=== PATIENT | female | born 1950 | race Caucasian/White ===

== ENCOUNTER → 2021-02-28 | Outpatient (CLI) | payer MEDICARE, OTHER ==
[~2021-02-28] MED LIST: MOTRIN200 MG PO; NORVASC5 MG PO; PROMETHAZINE HC25 M1 PO; TRAMADOL HCL50 MG PO; Z.0.MOBIC15 MG PO; Z.0.PHENERGAN25 M1 PO
== END ==
LOC: US 14:21
PROVIDERS: ATTEND Family Medicine
DX: N20.0 Calculus of kidney (principal)
CPT/HCPCS: 76770

== ENCOUNTER 2021-03-01 12:27 | Emergency (ER) | payer MEDICARE, OTHER ==
[~2021-03-01] VITALS: Ht 157.5 cm; Wt 77.1 kg
[~2021-03-01 12:27] MED LIST changes: -MOTRIN200 MG PO; -PROMETHAZINE HC25 M1 PO
[2021-03-01] MEDS ORDERED: KETOROLAC TROMETHAMINE 60 MG/2 ML VIAL IM ONE (13:00)
[2021-03-01] MEDS ORDERED: ONDANSETRON HCL 4 MG ORAL DISINTEGRATING TAB PO ONE (13:00)
[2021-03-01] MEDS ORDERED: PROMETHAZINE HCL (IM) 25 MG/ML VIAL IM ONE (13:30)
[2021-03-01 14:00] LABS: CLARITY,URINE CLEAR (CLEAR); COLOR,URINE YELLOW (YELLOW); KETONES,URINE NEGATIVE (NEGATIVE); LEUKOCYTE ESTERASE ,URINE NEGATIVE (NEGATIVE); NITRITE,URINE NEGATIVE (NEGATIVE); PROTEIN,URINE DIPSTICK NEGATIVE (NEGATIVE); URINE UROBILINOGEN 0.2 mg/dL (0.2 - 1)
[2021-03-01 14:11] LABS: EPITHELIAL CELLS,URINE FEW /LPF; RBC,URINE 0-5 /HPF (0-5); WBC,URINE (MAN) 0-5 /HPF (0-5)
[2021-03-01] MEDS ORDERED: MOTRIN200 MG PO (14:25)
[2021-03-01] MEDS ORDERED: PROMETHAZINE HC25 M1 PO (14:25)
[2021-03-01 14:30] VITALS: BP 124/55
== END 2021-03-01 14:36 | disposition home or self-care (01) ==
LOC: ER 12:43
DX: R10.30 Lower abdominal pain, unspecified (principal); R11.2 Nausea with vomiting, unspecified
CPT/HCPCS: 74176; 81001; 99284; J1885; J2550; Q0162

== ENCOUNTER 2022-06-22 03:52 | Inpatient (IN) | payer MEDICARE, OTHER ==
[~2022-06-22] VITALS: Ht 157.5 cm; Wt 81.6 kg
[2022-06-22] VITALS (7 sets, daily range): BP systolic 103–124; BP diastolic 63–77
[~2022-06-22 03:52] MED LIST changes: +MOTRIN200 MG PO; +PROMETHAZINE HC25 M1 PO
[2022-06-22 04:22] LABS: BASOPHILS # (AUTO) 0.1 (0.0-0.1); BASOPHILS % 0.7 % (0.0-1.0); EOSINOPHILS # (AUTO) 0.7 (0.0-0.4); EOSINOPHILS % 7.3 % (0.0-6.0); HEMATOCRIT 38.7 % (34.2-44.1); HEMOGLOBIN 13.2 g/dL (12.0-16.0); LYMPHOCYTES # (AUTO) 3.7 (1.0-3.2); LYMPHOCYTES % 41.7 % (18.0-39.1); MEAN CORPUSCULAR HEMOGLOBIN 32.7 pg (28-32); MEAN CORPUSCULAR HGB CONC 34.1 g/dL (31-35); MEAN CORPUSCULAR VOLUME 95.8 fL (81-99); MONOCYTES # (AUTO) 0.7 (0.2-0.8); MONOCYTES % 8.2 % (4.4-11.3); NEUTROPHILS # (AUTO) 3.7 (2.1-6.9); NEUTROPHILS % 41.8 % (38.7-80.0); PLATELET COUNT 349 x10e3/uL (140-360); RED BLOOD COUNT 4.04 x10e6/uL (3.6-5.1); RED CELL DISTRIBUTION WIDTH 12.5 % (11.7-14.4)
[2022-06-22 04:42] LABS: ANION GAP 15.6 mmol/L (8-16); CALCIUM 9.5 mg/dL (8.4-10.2); CREATININE, SERUM 0.83 mg/dL (0.57-1.11); POTASSIUM 3.6 mmol/L (3.5-5.1)
[2022-06-22] MEDS ORDERED: NITROSTAT0.4 MG SL (04:58)
[2022-06-22] MEDS ORDERED: ASPIRIN 81 MG CHEW TAB PO ONE ×2 (05:00→05:45)
[2022-06-22] MEDS ORDERED: LACTATED RINGER'S 1,000 ML INJ ONE (05:00)
[2022-06-22] MEDS ORDERED: ASPIRIN 325 MG TAB ONE (05:13)
[2022-06-22] MEDS ORDERED: ONDANSETRON HCL INJ 2MG/ML 2ML 2 MG/ML VIAL IV PRN (05:45)
[2022-06-22] MEDS ORDERED: ACETAMINOPHEN 1000 MG/100 ML IV PRN (06:00)
[2022-06-22 06:38] LABS: CREATINE KINASE MB 1.4 ng/mL (0-5.0)
[2022-06-22] MEDS ORDERED: PROMETHAZINE HCL 25 MG TAB PO ONE (07:45)
[2022-06-22] MEDS ORDERED: PREDNISONE 20 MG TAB PO ONE (10:30)
[2022-06-22] MEDS ORDERED: CLOPIDOGREL BISULFATE 75 MG TAB PO ONE (10:30)
[2022-06-22] MEDS ORDERED: ENOXAPARIN SOD INJ 60 MG/0.6 ML SYR SC ONE ×2 (10:30→10:51)
[2022-06-22] MEDS: METOPROLOL SUCCINATE 25 MG TAB XL PO SCH (10:49)
[2022-06-22] MEDS ORDERED: CLOPIDOGREL BISULFATE 75 MG TAB ONE (10:51)
[2022-06-22] MEDS ORDERED: METOPROLOL SUCCINATE 25 MG TAB XL ONE (10:51)
[2022-06-22] MEDS ORDERED: PREDNISONE 20 MG TAB ONE (10:51)
[2022-06-22] MEDS: METOCLOPRAMIDE HCL 10 MG TAB PO SCH ×3 (13:43→21:25)
[2022-06-22 14:49] LABS: CREATINE KINASE MB 1.6 ng/mL (0-5.0)
[2022-06-22] MEDS: MECLIZINE HCL 12.5 MG TAB PO SCH (17:01)
[2022-06-22] MEDS: FAMOTIDINE 20 MG TAB PO SCH (17:01)
[2022-06-22] MEDS ORDERED: TRAZODONE HCL 50 MG TAB PO PRN (17:45)
[2022-06-22] MEDS ORDERED: ACETAMINOPHEN 325 MG TAB PO PRN (19:00)
[2022-06-22] MEDS: ATORVASTATIN 40 MG TAB PO SCH (21:25)
[2022-06-23] VITALS (15 sets, daily range): BP systolic 102–146; BP diastolic 56–117
[2022-06-23] MEDS: SODIUM CHLORIDE 0.9% 1000ML 1,000 ML IV SCH ×2 (04:26→12:00)
[2022-06-23] MEDS ORDERED: PREDNISONE 20 MG TAB PO ONE (05:00)
[2022-06-23 05:06] LABS: BASOPHILS % 0.3 % (0.0-1.0); EOSINOPHILS % 0.1 % (0.0-6.0); HEMATOCRIT 32.3 % (34.2-44.1); HEMOGLOBIN 11.1 g/dL (12.0-16.0); LYMPHOCYTES # (AUTO) 2.2 (1.0-3.2); LYMPHOCYTES % 30.4 % (18.0-39.1); MEAN CORPUSCULAR HEMOGLOBIN 32.6 pg (28-32); MEAN CORPUSCULAR HGB CONC 34.4 g/dL (31-35); MEAN CORPUSCULAR VOLUME 94.7 fL (81-99); MONOCYTES # (AUTO) 0.7 (0.2-0.8); MONOCYTES % 9.5 % (4.4-11.3); NEUTROPHILS # (AUTO) 4.2 (2.1-6.9); NEUTROPHILS % 59.4 % (38.7-80.0); PLATELET COUNT 292 x10e3/uL (140-360); RED BLOOD COUNT 3.41 x10e6/uL (3.6-5.1)
[2022-06-23 05:23] LABS: ALBUMIN 3.5 g/dL (3.5-5.0); ALBUMIN/GLOBULIN RATIO 1.1 (0.8-2.0); ANION GAP 14.8 mmol/L (8-16); CALCIUM 8.6 mg/dL (8.4-10.2); CREATININE, SERUM 0.7 mg/dL (0.57-1.11); POTASSIUM 3.8 mmol/L (3.5-5.1)
[2022-06-23 05:54] LABS: CHOL/HDL RATIO 4.6 (3.0-3.6)
[2022-06-23 06:04] LABS: CREATINE KINASE MB 1.8 ng/mL (0-5.0)
[2022-06-23 06:16] LABS: THYROID STIMULATING HORMONE 0.96 uIU/mL (0.350-4.940)
[2022-06-23] MEDS: FAMOTIDINE 20 MG TAB PO SCH ×2 (07:30→21:08)
[2022-06-23] MEDS: METOCLOPRAMIDE HCL 10 MG TAB PO SCH ×4 (07:30→21:00)
[2022-06-23] MEDS: MECLIZINE HCL 12.5 MG TAB PO SCH ×2 (09:00→21:08)
[2022-06-23] MEDS: ASPIRIN 81 MG ENTERIC COATED PO SCH (10:09)
[2022-06-23] MEDS: METOPROLOL SUCCINATE 25 MG TAB XL PO SCH (10:09)
[2022-06-23] MEDS: CLOPIDOGREL BISULFATE 75 MG TAB PO SCH (10:10)
[2022-06-23] MEDS ORDERED: HEPARIN SOD (PORCINE) 1000 UNIT/ML 30ML ONE (11:21)
[2022-06-23] MEDS ORDERED: HEPARIN SOD/SOD CHLORIDE 2,000 ML ONE (11:21)
[2022-06-23] MEDS ORDERED: NITROGLYCERIN/D5W 200 MCG/ML 250 ML ONE (11:22)
[2022-06-23] MEDS ORDERED: IOPAMIDOL 370 MG/ML 100 ML INFUS..BTL INJ ONE ×2 (11:22→13:09)
[2022-06-23] MEDS ORDERED: SODIUM CHLORIDE 0.9% 1000ML 1,000 ML ONE (11:22)
[2022-06-23] MEDS ORDERED: PROMETHAZINE HCL (IM) 25 MG/ML VIAL IM ONE ×2 (11:54→12:02)
[2022-06-23] MEDS ORDERED: MIDAZOLAM HCL 2 MG/2 ML VIAL ONE ×2 (11:54→12:49)
[2022-06-23] MEDS ORDERED: METHYLPREDNISOLONE SOD SUCC 125 MG/2ML VIAL ONE ×2 (11:54→12:02)
[2022-06-23] MEDS ORDERED: FENTANYL CITRATE/PF 100MCG/2 ML INJ ONE ×2 (11:55→15:12)
[2022-06-23] MEDS ORDERED: LIDOCAINE HCL 2% LOCAL INJ 5 ML SDV VIAL INJ ONE (12:10)
[2022-06-23] MEDS ORDERED: BIVALRIUDIN 250 MG/VIAL VIAL IV ONE (12:44)
[2022-06-23] MEDS ORDERED: CLOPIDOGREL BISULFATE 75 MG TAB ONE (13:22)
[2022-06-23] MEDS ORDERED: SODIUM CHLORIDE 0.9% 1000ML 1,000 ML IV SCH (13:30)
[2022-06-23] MEDS ORDERED: TRAZODONE HCL50 MG PO (18:33)
[2022-06-23] MEDS ORDERED: TRAZODONE HCL 50 MG TAB PO PRN (18:45)
[2022-06-23] MEDS ORDERED: PROMETHAZINE HCL 25 MG TAB PO PRN (20:45)
[2022-06-23] MEDS: ATORVASTATIN 40 MG TAB PO SCH (21:08)
[2022-06-24] VITALS: BP 94/50
[2022-06-24 06:16] VITALS: BP 110/60
[2022-06-24] MEDS: SODIUM CHLORIDE 0.9% 1000ML 1,000 ML IV SCH ×3 (06:35→12:00)
[2022-06-24 07:43] LABS: BASOPHILS % 0.1 % (0.0-1.0); EOSINOPHILS % 0.1 % (0.0-6.0); HEMATOCRIT 35.9 % (34.2-44.1); HEMOGLOBIN 11.7 g/dL (12.0-16.0); LYMPHOCYTES # (AUTO) 1.6 (1.0-3.2); LYMPHOCYTES % 12.8 % (18.0-39.1); MEAN CORPUSCULAR HEMOGLOBIN 32.6 pg (28-32); MEAN CORPUSCULAR HGB CONC 32.6 g/dL (31-35); MONOCYTES # (AUTO) 0.3 (0.2-0.8); MONOCYTES % 2.8 % (4.4-11.3); NEUTROPHILS # (AUTO) 10.3 (2.1-6.9); NEUTROPHILS % 83.7 % (38.7-80.0); PLATELET COUNT 342 x10e3/uL (140-360); RED BLOOD COUNT 3.59 x10e6/uL (3.6-5.1)
[2022-06-24 08:04] LABS: ANION GAP 17.8 mmol/L (8-16); CALCIUM 9.1 mg/dL (8.4-10.2); CREATININE, SERUM 0.74 mg/dL (0.57-1.11); POTASSIUM 3.8 mmol/L (3.5-5.1)
[2022-06-24] MEDS: METOCLOPRAMIDE HCL 10 MG TAB PO SCH ×2 (08:30→11:59)
[2022-06-24 08:38] VITALS: BP 124/64
[2022-06-24] MEDS: FAMOTIDINE 20 MG TAB PO SCH (09:19)
[2022-06-24] MEDS: MECLIZINE HCL 12.5 MG TAB PO SCH (09:20)
[2022-06-24] MEDS: CLOPIDOGREL BISULFATE 75 MG TAB PO SCH (09:20)
[2022-06-24] MEDS: ASPIRIN 81 MG ENTERIC COATED PO SCH (09:20)
[2022-06-24] MEDS: METOPROLOL SUCCINATE 25 MG TAB XL PO SCH (09:21)
[2022-06-24 09:30] VITALS: BP 124/64
[2022-06-24] MEDS ORDERED: PLAVIX75 MG PO (11:15)
[2022-06-24] MEDS ORDERED: ATORVASTATIN CA20 MG PO (11:16)
[2022-06-24] MEDS ORDERED: METOPROLOL SUCC25 MG PO (11:16)
[2022-06-24 11:53] VITALS: BP 116/62
[2022-06-24] MEDS ORDERED: ASPIRIN81 MG PO (12:14)
== END 2022-06-24 13:23 | disposition home or self-care (01) | DRG 247 ==
LOC: ER 04:01 → ERHOLD 05:42 → MED/SURG 08:22 → OBSVTOIN 06-23 16:32
PROVIDERS: ADMIT Family Medicine; ATTEND Family Medicine
PROC: 027034Z Dilation of Coronary Artery, One Artery with Drug-eluting Intraluminal Device, Percutaneous Approach (ICD-10-PCS; principal; 2022-06-23)
PROC: 4A023N7 Measurement of Cardiac Sampling and Pressure, Left Heart, Percutaneous Approach (ICD-10-PCS; 2022-06-23)
PROC: B2131ZZ Fluoroscopy of Multiple Coronary Artery Bypass Grafts using Low Osmolar Contrast (ICD-10-PCS; 2022-06-23)
PROC: B2151ZZ Fluoroscopy of Left Heart using Low Osmolar Contrast (ICD-10-PCS; 2022-06-23)
PROC: B2111ZZ Fluoroscopy of Multiple Coronary Arteries using Low Osmolar Contrast (ICD-10-PCS; 2022-06-23)
DX: I25.700 Atherosclerosis of coronary artery bypass graft(s), unspecified, with unstable angina pectoris (principal); I25.110 Atherosclerotic heart disease of native coronary artery with unstable angina pectoris; I25.82 Chronic total occlusion of coronary artery; I10 Essential (primary) hypertension; E78.5 Hyperlipidemia, unspecified; E78.00 Pure hypercholesterolemia, unspecified; G43.909 Migraine, unspecified, not intractable, without status migrainosus; R42 Dizziness and giddiness; F41.9 Anxiety disorder, unspecified; I25.2 Old myocardial infarction; Z91.041 Radiographic dye allergy status; Z95.1 Presence of aortocoronary bypass graft; Z95.5 Presence of coronary angioplasty implant and graft; Z95.0 Presence of cardiac pacemaker; Z88.5 Allergy status to narcotic agent; Z88.8 Allergy status to other drugs, medicaments and biological substances; Z90.49 Acquired absence of other specified parts of digestive tract; Z90.710 Acquired absence of both cervix and uterus; Z80.1 Family history of malignant neoplasm of trachea, bronchus and lung; Z20.822 Contact with and (suspected) exposure to COVID-19
CPT/HCPCS: 36415; 71045; 76937; 80048; 80053; 80061; 82550; 82553; 83690; 84443; 84484; 85025; 85379; 92920; 92937; 93005; 93306; 93459; 99152; 99153; 99284; C1725; C1760; C1769; C1876; C1887; G0378; J0583; J1644; J1650; J2001; J2250; J2550; J2930; J3010; J7030; J7121; J7512; Q9967